=== PATIENT | male | born 1960 | race Caucasian/White ===

== ENCOUNTER 2018-04-07 11:36 | Day surgery (SDC) | payer OTHER ==
[2018-04-07] MEDS ORDERED: PROPOFOL 10 MG/ML VIAL IV ONE (11:37)
[2018-04-07] MEDS ORDERED: LIDOCAINE 2% MDV (20MG/ML) 20ML VIAL IV ONE (11:37)
--- NOTE | 2018-04-12 16:40 | Operative Note ---
DATE OF SURGERY: OPERATION: COLONOSCOPY with random biopsy. PREOPERATIVE DIAGNOSIS: Family history of colon cancer, history of intermittent diarrhea, history if ileal intussusception. POSTOPERATIVE DIAGNOSIS: Colonic diverticulosis, otherwise normal exam. PREPARATION QUALITY: Good. ESTIMATED BLOOD LOSS: Minimum. SPECIMENS: Random biopsies. COMPLICATIONS: None apparent. PROCEDURE: After informed consent was obtained from the patient, he was placed in the left lateral decubitus position in the endoscopy suite, sedated and monitored by the department of anesthesia. Digital rectal exam was unremarkable. A well-lubricated CF160 colonoscope was inserted into the rectum and advanced to the cecum. The cecum, cecal bulb, ascending colon, transverse colon, descending colon, sigmoid colon, and rectum were free of inflammatory changes, mass lesions, or polyps. There were scattered diverticula throughout the right and left colon. Random colonic biopsies were obtained to rule out microscopic colitis. Forward and J-turn views of the rectum and anorectum were unremarkable. The endoscope was straightened, the rectal ampulla deflated, and the endoscope was removed. RECOMMENDATIONS: The patient should follow a high-fiber diet. We will await results of tissue histology. Should undergo repeat exam in 5 years based on his family history. As always, thank you for allowing me to participate in the healthcare of your patients. CC: Dr. Gino JIANG
== END 2018-04-07 13:25 | disposition home or self-care (01) ==
LOC: HOP 11:36
PROVIDERS: ATTEND Internal Medicine Gastroenterology
DX: Z12.11 Encounter for screening for malignant neoplasm of colon (principal); Z80.0 Family history of malignant neoplasm of digestive organs; Z87.19 Personal history of other diseases of the digestive system; K57.30 Diverticulosis of large intestine without perforation or abscess without bleeding; I10 Essential (primary) hypertension